=== PATIENT | female | born 1955 | race Caucasian/White ===

== ENCOUNTER 2020-05-19 15:34 | Outpatient (CLI) | payer MEDICARE, MEDICAID, SELFPAY ==
--- NOTE | 2020-05-19 15:40 | XR_ITS ---
WS: [id number] Bone mineral density performed on a [employer], 05/19/2020 Clinical data: POSTMENOPAUSAL STATUS Findings: The bone mineral density of the distal left radius was 0.25 g/sq cm for a young adult T score of -4.0 Measurement of the left hip reveals a bone mineral density of 0.595 g/cm2 with a young adult T score of -3.3. Measurement of the right hip reveals the bone mineral density of 0.637 g/cm2 for young adult T score of -2.9. 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
== END 2020-05-19 15:35 | disposition home or self-care (01) ==
PROVIDERS: Family Provider Electrodiagnostic Medicine; Visit Provider Electrodiagnostic Medicine
DX: Z78.0 Asymptomatic menopausal state (principal); M81.0 Age-related osteoporosis without current pathological fracture
CPT/HCPCS: 77080

== ENCOUNTER 2021-08-17 12:57 | Outpatient (CLI) | payer MEDICARE, MEDICAID, SELFPAY ==
--- NOTE | 2021-08-17 13:07 | MM_ITS ---
WS: [id number] BILATERAL DIGITAL SCREENING MAMMOGRAPHY WITH CAD CLINICAL INFORMATION: SCREENING HISTORY: Screening mammogram. No current complaints. COMPARISON: TECHNIQUE: Bilateral CC and MLO views. FINDINGS: Scattered fibroglandular densities bilaterally. 6 mm ovoid asymmetry inferior quadrant right breast b est seen on the MLO view more prominent compared to previous. Recommend spot compression views and ul trasound for further evaluation. Left breast is unchanged. Punctate and lucent centered calcification s. MM/[place] [id number] IMPRESSION: BI-RADS: 0-Incomplete: Need additional imaging evaluation FOLLOW UP: Need Additional Imaging Recommend RIGHT breast diagnostic mammography and ultrasound in further evaluat ion.
== END 2021-08-17 12:58 | disposition home or self-care (01) ==
LOC: RADSHAW 13:04
PROVIDERS: PCP Electrodiagnostic Medicine; Visit Provider Electrodiagnostic Medicine
DX: Z12.31 Encounter for screening mammogram for malignant neoplasm of breast (principal)
CPT/HCPCS: 77067

== ENCOUNTER 2021-11-22 14:03 | Outpatient (CLI) | payer MEDICARE, MEDICAID, SELFPAY ==
--- NOTE | 2021-11-22 14:16 | US_ITS ---
WS: [id number] RIGHT DIGITAL MAMMOGRAPHY WITH CAD CLINICAL INFORMATION: RIGHT BREAST MASS COMPARISON: August 17, 2021 TECHNIQUE: 2 views of the right breast were obtained. FINDINGS: Scattered fibroglandular densities of the right breast. 6 mm ovoid asymmetry inferior quadrant right breast appears persistent on the spot compression views. Ultrasound is pending. ULTRASOUND BREAST RIGHT TECHNIQUE: Ultrasound right breast focused area of concern. CLINICAL INFORMATION: RIGHT BREAST MASS COMPARISON: None. FINDINGS: Ultrasound right breast 800 o'clock position 3 cm from the nipple. There is a slightly complex hypoec hoic well-circumscribed ovoid lesion with internal echogenicity measuring 6.7 x 3.2 x 7.6 mm. This is indeterminant and recommend further evaluation with ultrasound-guided biopsy. Additional smaller shadowing hypoechoic lesion at the 3:00 position 2 cm in the nipple measuring 1.8 x 2.2 x 2.2 mm. This lesion is very small but taller than wide and appears solid. Recommend ultrasoun d-guided biopsy of this area as well. US/US breast RT limited* [id number] IMPRESSION: BI-RADS: 4-Suspicious Finding-Biopsy Should Be Considered FOLLOW UP: US Guided Biopsy Recommended RECOMMEND ULTRASOUND-GUIDED BIOPSY OF THE 2 ABOVE RIGHT BREAST LESIONS.
== END 2021-11-22 14:04 | disposition home or self-care (01) ==
LOC: RADSHAW 14:09
PROVIDERS: PCP Electrodiagnostic Medicine; Visit Provider Electrodiagnostic Medicine
DX: R92.8 Other abnormal and inconclusive findings on diagnostic imaging of breast (principal); N63.13 Unspecified lump in the right breast, lower outer quadrant; N63.15 Unspecified lump in the right breast, overlapping quadrants
CPT/HCPCS: 76642; 77065

== ENCOUNTER → 2022-06-11 08:57 | Day surgery (SDC) | payer MEDICARE, MEDICAID, SELFPAY ==
[2022-06-11 08:19] VITALS: BMI 21.2
[2022-06-11] MEDS: sodium chloride 0.9% 1,000 ML 999 ML IV (09:16)
[2022-06-11 09:19] VITALS: BP 170/96; PULSE 90; RESP 18; TEMP 36.8; O2SAT 93
== END ==
PROVIDERS: PCP Electrodiagnostic Medicine; Visit Provider Family Medicine
DX: C34.92 Malignant neoplasm of unspecified part of left bronchus or lung (principal)
CPT/HCPCS: 96360; J7030

== ENCOUNTER → 2022-06-14 08:51 | Day surgery (SDC) | payer MEDICARE, MEDICAID, SELFPAY ==
[2022-06-14] MEDS: sodium chloride 0.9% 1,000 ML 999 ML IV (09:01)
[2022-06-14 09:07] VITALS: BP 144/77; PULSE 80; RESP 18; TEMP 36.7; O2SAT 98
== END ==
PROVIDERS: PCP Electrodiagnostic Medicine; Visit Provider Family Medicine
DX: C34.92 Malignant neoplasm of unspecified part of left bronchus or lung (principal)
CPT/HCPCS: 96360; J7030

== ENCOUNTER → 2022-06-18 09:52 | Day surgery (SDC) | payer MEDICARE, MEDICAID, SELFPAY ==
[2022-06-18] MEDS: sodium chloride 0.9% 1,000 ML 999 ML IV (10:05)
[2022-06-18 10:08] VITALS: BP 167/82; PULSE 86; RESP 18; TEMP 36.8; O2SAT 98
== END ==
PROVIDERS: PCP Electrodiagnostic Medicine; Visit Provider Electrodiagnostic Medicine
DX: C34.92 Malignant neoplasm of unspecified part of left bronchus or lung (principal)
CPT/HCPCS: 96360; J7030

== ENCOUNTER → 2022-06-21 09:50 | Day surgery (SDC) | payer MEDICARE, MEDICAID, SELFPAY ==
[2022-06-21] MEDS: sodium chloride 0.9% 1,000 ML 999 ML IV (10:01)
[2022-06-21 10:03] VITALS: BP 165/86; PULSE 78; RESP 18; TEMP 36.5; O2SAT 97
== END ==
PROVIDERS: PCP Electrodiagnostic Medicine; Visit Provider Electrodiagnostic Medicine
DX: C34.92 Malignant neoplasm of unspecified part of left bronchus or lung (principal)
CPT/HCPCS: 96360; J7030

== ENCOUNTER → 2022-07-04 08:48 | Day surgery (SDC) | payer MEDICARE, MEDICAID, SELFPAY ==
[2022-07-04] MEDS: sodium chloride 0.9% 1,000 ML 999 ML IV (09:04)
[2022-07-04 09:11] VITALS: BP 134/95; PULSE 93; RESP 18; TEMP 36.3; O2SAT 97
== END ==
PROVIDERS: PCP Electrodiagnostic Medicine; Visit Provider Electrodiagnostic Medicine
DX: E86.0 Dehydration (principal); C34.90 Malignant neoplasm of unspecified part of unspecified bronchus or lung
CPT/HCPCS: 96360; J7030

== ENCOUNTER 2022-07-26 10:14 | Outpatient (RCR) | payer MEDICARE, MEDICAID, SELFPAY ==
[2022-07-10] MEDS: sodium chloride 0.9% 1,000 ML 999 ML IV (10:37)
[2022-07-10 10:41] VITALS: BP 156/79; PULSE 79; RESP 18; TEMP 36.9; O2SAT 98
[2022-07-12] MEDS: sodium chloride 0.9% 1,000 ML 999 ML IV (11:00)
[2022-07-12 11:01] VITALS: BP 164/87; PULSE 77; RESP 18; TEMP 36.7; O2SAT 94
[2022-07-16] MEDS: sodium chloride 0.9% 1,000 ML 999 ML IV (10:18)
[2022-07-16 10:25] VITALS: BP 143/84; PULSE 96; RESP 18; TEMP 37; O2SAT 99
[2022-07-19 09:55] VITALS: BP 169/87; PULSE 84; RESP 18; TEMP 36.9; O2SAT 98
[2022-07-19] MEDS: sodium chloride 0.9% 1,000 ML 999 ML IV (09:58)
[2022-07-23] MEDS: sodium chloride 0.9% 1,000 ML 999 ML IV (09:25)
[2022-07-23 09:37] VITALS: BP 144/78; PULSE 82; RESP 18; TEMP 37.3; O2SAT 93
[2022-07-26 10:14] VITALS: BP 154/88; PULSE 86; RESP 18; TEMP 37; O2SAT 99
[2022-07-26] MEDS: sodium chloride 0.9% 1,000 ML 999 ML IV (10:14)
== END 2022-08-03 23:59 | disposition home or self-care (01) ==
LOC: GILAB 10:14
PROVIDERS: PCP Electrodiagnostic Medicine; Visit Provider Electrodiagnostic Medicine
DX: E86.0 Dehydration (principal); C34.90 Malignant neoplasm of unspecified part of unspecified bronchus or lung
CPT/HCPCS: 96360; J7030

== ENCOUNTER → 2022-09-06 09:43 | Day surgery (SDC) | payer MEDICARE, SELFPAY ==
[2022-09-06 10:02] VITALS: BP 152/83; PULSE 82; RESP 18; TEMP 36.7; O2SAT 98
== END ==
PROVIDERS: PCP Electrodiagnostic Medicine; Visit Provider Internal Medicine Hematology & Oncology
DX: Z45.2 Encounter for adjustment and management of vascular access device (principal)
CPT/HCPCS: 96523; J1642

== ENCOUNTER → 2022-10-18 09:52 | Day surgery (SDC) | payer MEDICARE, SELFPAY ==
[2022-10-18 10:19] VITALS: BP 156/98; PULSE 80; RESP 18; TEMP 36.1; O2SAT 96
== END ==
LOC: GILAB 09:56
PROVIDERS: PCP Electrodiagnostic Medicine; Visit Provider Internal Medicine Hematology & Oncology
DX: Z45.2 Encounter for adjustment and management of vascular access device (principal)
CPT/HCPCS: 96523

== ENCOUNTER → 2023-01-02 10:42 | Day surgery (SDC) | payer MEDICARE, SELFPAY ==
[2023-01-02 10:50] VITALS: BP 143/81; PULSE 85; RESP 18; TEMP 36.4; O2SAT 100
== END ==
LOC: GILAB 10:44
PROVIDERS: PCP Electrodiagnostic Medicine; Visit Provider Internal Medicine Hematology & Oncology
DX: Z45.2 Encounter for adjustment and management of vascular access device (principal)
CPT/HCPCS: 96523; J1642

== ENCOUNTER → 2023-03-19 11:55 | Day surgery (SDC) | payer MEDICARE, SELFPAY ==
[2023-03-19 11:55] VITALS: BP 160/76; PULSE 80; RESP 18; TEMP 36.4; O2SAT 98
--- NOTE | 2023-03-19 12:00 | PC.NURSE ---
Pt to GI infusions for port flush. Port to right chest flushed per protocol without difficulty. Good blood return noted. Pt tolerated well.
== END ==
PROVIDERS: PCP Electrodiagnostic Medicine; Visit Provider Internal Medicine Hematology & Oncology
DX: Z45.2 Encounter for adjustment and management of vascular access device (principal)
CPT/HCPCS: 96523

== ENCOUNTER 2023-03-25 12:08 | Outpatient (CLI) | payer MEDICARE, MEDICAID, SELFPAY ==
[2023-03-25 13:03] VITALS: BMI 21.1
--- NOTE | 2023-03-25 13:08 | ECG_ITS ---
[facility] Test Date: 2023-03-25 Pat Name: Mayra Ndiaye Department: Room: Gender: Female Rn Lactation: : 1955 Requested By: Christ Schaefer Order Number: [id number] Jung MD: Shaka Julian M.D. Interpretive Statements NAME OF STUDY: TREADMILL STRESS TEST INDICATION: Chest Pain PROCEDURE: At the baseline, the patient's blood pressure was 139/75 with a heart rate of 76. The baseline electrocardiogram showed normal sinus rhythm with normal ST-Ts.. The patient exercised for 5 minutes and 49 seconds on a standard [place] protocol. Patient attained a maximum heart rate of 136 beats per minute(88% of the maximum predicted heart rate) with a blood pressure at the peak exercise of 167/86 mm Hg. The EKG at the peak exercise revealed no significant changes. Patient did not have any chest pain or any significant cardiac arrhythmias with the exercise During the recovery phase, there were no new changes. Blood pressure at the end of the recovery phase was 127/74 mm Hg with a heart rate of 91 per minute. CONCLUSION: 1. Normal EKG response to treadmill exercise 2. No exercise-induced chest pain or cardiac arrhythmia 3. Fair exercise tolerance, attained a maximum of 7.0 METs Electronically Signed On 03-28-2023 7:38:55 CDT by Shaka Julian M.D. [email or web address]
[2023-03-25 13:34] VITALS: BP 127/74; PULSE 90
== END 2023-03-25 12:09 | disposition home or self-care (01) ==
LOC: CDL 12:12
PROVIDERS: PCP Electrodiagnostic Medicine; Visit Provider Electrodiagnostic Medicine
DX: R07.89 Other chest pain (principal)
CPT/HCPCS: 93017

== ENCOUNTER 2023-04-23 14:48 | Emergency (ER) | payer MEDICARE, MEDICAID, SELFPAY ==
[2023-04-23 15:23] VITALS: BP 119/77; PULSE 92; RESP 18; TEMP 36.7; O2SAT 100
--- NOTE | 2023-04-23 15:58 | XRR_ITS ---
PROCEDURE INFORMATION: Exam: XR Chest Exam date and time: 04/23/2023 4:08 PM Age: 68 years old Clinical indication: Other: Fatigue; Prior surgery; Surgery date: 6+ months; Surgery type: Port; Patient HX: HX of lung cancer TECHNIQUE: Imaging protocol: Radiologic exam of the chest. Views: 1 view. COMPARISON: CR XR chest 2V* [id number] 03/09/2019 4:48 PM FINDINGS: Tubes, catheters and devices: Interval placement of a right subclavian Port-A-Cath with the tip in the superior vena cava. Lungs: Interval development of linear soft tissue density in the left suprahilar region with superior retraction of the left hilum, this could be due to prior postsurgical or post radiation change. No focal consolidation. No pulmonary edema. Pleural spaces: No pleural effusion. No pneumothorax. Heart/Mediastinum: The cardiac silhouette and mediastinal contours are unremarkable. Vasculature: Stable vascular calcifications in the aorta. Bones/joints: Unremarkable for age. Organs: Stable findings consistent with a previous cholecystectomy with surgical clips in the right upper quadrant. XR/XR chest 1V portable [id number] IMPRESSION: 1. Interval development of linear soft tissue density in the left suprahilar region with superior retraction of the left hilum, this could be due to prior postsurgical or post radiation change, possible new suprahilar lymph node cannot be ruled out. Correlation with interval studies after treatment if available is recommended. If additional studies are not available, CT scan of the chest would be recommended. 2. Interval placement of a right subclavian Port-A-Cath with the tip in the superior vena cava. Incidental/nonacute findings are listed in the report.
--- NOTE | 2023-04-23 16:02 | ED_ITS ---
Documented by User: FELIX Sotelo 04/24/23 07:15 HPI - Nausea/Vomiting/Diarrhea General: Chief complaint: Nausea/Vomiting/Diarrhea Stated complaint: not sleeping, N/V Time Seen by Provider: 04/23/23 15:41 History of Present Illness: Patient is a 68-year-old female who comes to the ED with nausea, vomiting, abdominal pain and fatigue. Patient has a history of lung cancer that was diagnosed back in June 2022 and she completed treatment. Patient's daughter is present helping provide history as well. Approximately a month ago patient started having fatigue and was sleeping a lot. Approximately 2 weeks ago she started having episodes of abdominal pain that is located in her upper abdomen bilaterally. Here in the ED she is not having any current abdominal pain. She is also been having nausea and vomiting over the last 2 weeks and has not been able to keep any food or fluids down. Patient endorses having some constipation and says she only has bowel movements every couple days. She says she has been very fatigued and can hardly and has a hard time getting up and doing daily activities. Daughter endorses patient being confused. Denies any fevers, chest pain, shortness of breath, dysuria or hematuria. Associated nausea: Yes Associated symtoms: Reports fatigue and nausea; Denies change in vision, chest pain, dysuria, headache(s) or palpitations Review of Systems Const: Reports: fatigue; Denies: fever(s) or chills Eyes: Denies: change in vision or eye discomfort ENMT: Denies: throat pain, odynophagia, nasal discharge or nasal congestion Card: Denies: chest pain, palpitations, edema, swelling of feet/ankles, dyspnea on exertion or orthopnea Resp: Denies: dyspnea, productive cough or non-productive cough GI: Reports: nausea and vomiting; Denies: abdominal pain, diarrhea, constipation or hematochezia : Denies: flank pain, dysuria or hematuria Musc: Denies: neck pain, back pain or extremity swelling Skin/Breast: Denies: rash or new lesions Neuro: Denies: headache(s), numbness in extremities or weakness in extremities [facility] ED PFSH: Medical History (Updated 04/23/23 @ 18:15 by Yoselyn Jones MD) Lung cancer Physical Exam Const: COMMON NORMALS: patient oriented x3 and alert GENERAL APPEARANCE: lethargic and ill appearing ORIENTATION/CONSCIOUSNESS: Yes lethargic OTHER: Patient is actively vomiting during history and exam. She appears very tired and sleepy HENMT: COMMON NORMALS: normocephalic HEAD & SCALP: normocephalic MOUTH: Normal oral and palatal mucosa present THROAT: posterior oropharynx normal and uvula midline Neck/C-Spine: COMMON NORMALS: supple GENERAL: Yes normal visual inspection Resp: COMMON NORMALS: normal respiratory effort, No retractions, No use of accessory muscles and clear to auscultation bilaterally AUSCULTATION: clear to auscultation bilaterally Cardio: COMMON NORMALS: regular rate, regular rhythm, S1 normal heart sound present, S2 normal heart sound present, No gallops present (Cardio), No clicks present (Cardio), No murmurs present (Cardio) and Peripheral pulses 2+ throughout RATE: regular rate RHYTHM: regular rhythm HEART SOUNDS: S1 normal heart sound present and S2 normal heart sound present PERIPHERAL P ULSES: Peripheral pulses 2+ throughout GI: COMMON NORMALS: Normal to inspection, nondistended, normoactive bowel sounds present, Soft to palpation, non-tender and no masses PALPATION: Yes Soft to palpation : COMMON NORMALS: Yes no CVA tenderness BLADDER/KIDNEY EXAM: Yes no CVA tenderness Back/Pelvis: COMMON NORMALS: no CVA tenderness Extremity: COMMON NORMALS: normal to inspection Neuro: COMMON NORMALS: patient oriented x3 SENSORIUM/ORIENTATION: Yes alert and Yes lethargic GAIT: Yes Normal gait present Skin: GENERAL SKIN EXAM: dry skin Course Vital Signs: Vital signs: Vital Signs Temperature 98.1 F 04/23/23 15:23 Pulse Rate 91 04/23/23 18:46 Respiratory Rate 18 04/23/23 15:23 Blood Pressure 156/87 04/23/23 18:46 Pulse Oximetry 96 04/23/23 18:46 Oxygen Delivery Me thod Room Air 04/23/23 15:23 MDM - Nausea/Vomiting/Diarrhea Lab Data 04/23/23 16:04 04/23/23 16:04 Radiology Impressions Chest X-Ray 04/23/23 15:58 IMPRESSION: 1. Interval development of linear soft tissue density in the left suprahilar region with superior retraction of the left hilum, this could be due to prior postsurgical or post radiation change, possible new suprahilar lymph node cannot be ruled out. Correlation with interval studies after treatment if available is recommended. If additional studies are not available, CT scan of the chest would be recommended. 2. Interval placement of a right subclavian Port-A-Cath with the tip in the superior vena cava. Incidental/nonacute findings are listed in the report. Laboratory Results WBC 6.7 10^3/uL (4.0-10.0) 04/23/23 16:04 RBC 5.45 10^6/uL (4.1-5.3) H 04/23/23 16:04 Hgb 16.1 g/dL (11.5-15.3) H 04/23/23 16:04 Hct 49.0 % (37.0-47.0) H 04/23/23 16:04 MCV 89.9 fl (81-99) 04/23/23 16:04 MCH 29.5 pg (28.0-34.0) 04/23/23 16:04 MCHC 32.9 g/dL (30.0-36.0) 04/23/23 16:04 RDW 12.5 % (12.1-15.1) 04/23/23 16:04 Plt Count 269 10^3/cmm (130-400) 04/23/23 16:04 MPV 10.0 fL (7.4-10.4) 04/23/23 16:04 Neut % (Auto) 62.2 % 04/23/23 16:04 Lymph % (Auto) 21.7 % 04/23/23 16:04 [place] % (Auto) 12.5 % 04/23/23 16:04 Eos % (Auto) 1.7 % 04/23/23 16:04 Baso % (Auto) 1.1 % 04/23/23 16:04 Neut # (Auto) 4.15 10^3/uL (1.8-7.7) 04/23/23 16:04 Lymph # (Auto) 1.4 10^3/uL (0.8-4.8) 04/23/23 16:04 [place] # (Auto) 0.8 10^3/uL (0.2-0.9) 04/23/23 16:04 Eos # (Auto) 0.1 10^3/uL (0.0-0.8) 04/23/23 16:04 Baso # (Auto) 0.1 10^3/uL (0.0-0.1) 04/23/23 16:04 Nucleated RBC % (auto) 0 % 04/23/23 16:04 Nucleated RBCs # 0.0 /100WBC 04/23/23 16:04 Sodium 140 mmol/L (136-145) 04/23/23 16:04 Potassium 4.0 mmol/L (3.5-5.1) 04/23/23 16:04 Chloride 100 mmol/L (98-107) 04/23/23 16:04 Carbon Dioxide 21 mmol/L (22-29) L 04/23/23 16:04 Anion Gap 23.0 (5-19) H 04/23/23 16:04 BUN 23 mg/dL (8-23) 04/23/23 16:04 Creatinine 1.7 mg/dL (0.5-0.9) H 04/23/23 16:04 GFR Calculation 30.1 mL/min (90-130) L 04/23/23 16:04 Glucose 72 mg/dL (65-115) 04/23/23 16:04 Calculated Osmolality 292 mOsm/kg (285-295) 04/23/23 16:04 Lactic Acid 1.8 mmol/L (0.5-2.2) 04/23/23 16:04 Calcium 9.4 mg/dL (8.5-10.5) 04/23/23 16:04 Total Bilirubin 0.6 mg/dL (0.15-1.2) 04/23/23 16:04 AST 24 U/L (0-32) 04/23/23 16:04 ALT 11 U/L (0-33) 04/23/23 16:04 Alkaline Phosphatase 83 U/L (35-105) 04/23/23 16:04 Total Protein 8.9 g/dL (6.6-8.7) H 04/23/23 16:04 Albumin 4.6 g/dL (3.5-5.2) 04/23/23 16:04 Globulin 4.3 g/dL (1.3-4.6) 04/23/23 16:04 Lipase 35 U/L (13-60) 04/23/23 16:04 Urine Color Yellow (Yellow) 04/23/23 15:23 Urine Appearance Clear (CLEAR) 04/23/23 15:23 Urine pH 5 (5-7) 04/23/23 15:23 Ur Specific [place] 1.020 (1.005-1.030) 04/23/23 15:23 Urine Protein Neg (Negative) 04/23/23 15:23 Urine Glucose (UA) Norm (Normal) 04/23/23 15:23 Urine Ketones 2+ (Negative) H 04/23/23 15:23 Urine Blood Neg (Negative) 04/23/23 15:23 Urine Nitrate Negative (Negative) 04/23/23 15:23 Urine Bilirubin Neg (Negative) 04/23/23 15:23 Urine Urobilinogen Norm mg/dL (Negative) 04/23/23 15:23 Ur Leukocyte Esterase Negative (Negative) 04/23/23 15:23 Discharge Plan Discharge Patient Disposition: Home Clinical Impression: Vomiting Condition: Stable Prescriptions: New ondansetron 4 mg tablet,disintegrating 4 mg PO Q6H PRN (Reason: nausea and vomiting) Qty: 14 0RF No Action lovastatin 40 mg tablet 40 mg PO DAILY trazodone 150 mg tablet 150 mg PO DAILY omeprazole 20 mg capsule,delayed release(DR/EC) 20 mg PO DAILY albuterol sulfate 90 mcg/actuation HFA aerosol inhaler 1 inh INHALATION .Q6HR PRN (Reason: Wheezing) Discharge Orders: Discharge ED (Routine); Ordered 04/23/23 Ordered By: Yoselyn Jones Referrals: Christ Trent DO [Primary Care Provider] - 1-3 days Discharge Diet: Advance as tolerated Discharge Activity: Resume usual activity Patient Instructions: Acute Nausea and Vomiting (ED) Activity Restrictions/Additional Instructions: Follow up with pcp or oncologisty and will need further imaging of chest outpatient Sign Out Sign Out Data: Patient Sign Out occurred on 04/23/23 at 16:41. Patient's care was discussed, and care was transferred from to Ricardo Parnell DO. Coding Level of Care Code ED Vocational Nurse for Chg Fwd Documented by User: Yoselyn Jones MD 04/23/23 18:47 HPI - Nausea/Vomiting/Diarrhea General: Chief complaint: Nausea/Vomiting/Diarrhea Stated complaint: not sleeping, N/V Time Seen by Provider: 04/23/23 15:41 PFSH ED PFSH: Medical History (Updated 04/23/23 @ 18:15 by Yoselyn Jones MD) Lung cancer Course Vital Signs: Vital signs: Vital Signs Temperature 98.1 F 04/23/23 15:23 Pulse Rate 91 04/23/23 18:46 Respiratory Rate 18 04/23/23 15:23 Blood Pressure 156/87 04/23/23 18:46 Pulse Oximetry 96 04/23/23 18:46 Oxygen Delivery Me thod Room Air 04/23/23 15:23 MDM - Nausea/Vomiting/Diarrhea Medical Decision Making Patient presents with nausea vomiting some improved here she is able to tolerate p.o. fluids blood work here is normal I did an inform her of the finding on the chest x-ray she is to follow-up with her oncologist or her PCP needs outpatient CT scan and her and her daughter understand this we will prescribe her Zofran for home for her vomiting she is to return if worsening Medical Records I reviewed the patient's medical records. Lab Data I reviewed the patient's lab results. 04/23/23 16:04 04/23/23 16:04 Radiology Impressions Chest X-Ray 04/23/23 15:58 IMPRESSION: 1. Interval development of linear soft tissue density in the left suprahilar region with superior retraction of the left hilum, this could be due to prior postsurgical or post radiation change, possible new suprahilar lymph node cannot be ruled out. Correlation with interval studies after treatment if available is recommended. If additional studies are not available, CT scan of the chest would be recommended. 2. Interval placement of a right subclavian Port-A-Cath with the tip in the superior vena cava. Incidental/nonacute findings are listed in the report. Laboratory Results WBC 6.7 10^3/uL (4.0-10.0) 04/23/23 16:04 RBC 5.45 10^6/uL (4.1-5.3) H 04/23/23 16:04 Hgb 16.1 g/dL (11.5-15.3) H 04/23/23 16:04 Hct 49.0 % (37.0-47.0) H 04/23/23 16:04 MCV 89.9 fl (81-99) 04/23/23 16:04 MCH 29.5 pg (28.0-34.0) 04/23/23 16:04 MCHC 32.9 g/dL (30.0-36.0) 04/23/23 16:04 RDW 12.5 % (12.1-15.1) 04/23/23 16:04 Plt Count 269 10^3/cmm (130-400) 04/23/23 16:04 MPV 10.0 fL (7.4-10.4) 04/23/23 16:04 Neut % (Auto) 62.2 % 04/23/23 16:04 Lymph % (Auto) 21.7 % 04/23/23 16:04 [place] % (Auto) 12.5 % 04/23/23 16:04 Eos % (Auto) 1.7 % 04/23/23 16:04 Baso % (Auto) 1.1 % 04/23/23 16:04 Neut # (Auto) 4.15 10^3/uL (1.8-7.7) 04/23/23 16:04 Lymph # (Auto) 1.4 10^3/uL (0.8-4.8) 04/23/23 16:04 [place] # (Auto) 0.8 10^3/uL (0.2-0.9) 04/23/23 16:04 Eos # (Auto) 0.1 10^3/uL (0.0-0.8) 04/23/23 16:04 Baso # (Auto) 0.1 10^3/uL (0.0-0.1) 04/23/23 16:04 Nucleated RBC % (auto) 0 % 04/23/23 16:04 Nucleated RBCs # 0.0 /100WBC 04/23/23 16:04 Sodium 140 mmol/L (136-145) 04/23/23 16:04 Potassium 4.0 mmol/L (3.5-5.1) 04/23/23 16:04 Chloride 100 mmol/L (98-107) 04/23/23 16:04 Carbon Dioxide 21 mmol/L (22-29) L 04/23/23 16:04 Anion Gap 23.0 (5-19) H 04/23/23 16:04 BUN 23 mg/dL (8-23) 04/23/23 16:04 Creatinine 1.7 mg/dL (0.5-0.9) H 04/23/23 16:04 GFR Calculation 30.1 mL/min (90-130) L 04/23/23 16:04 Glucose 72 mg/dL (65-115) 04/23/23 16:04 Calculated Osmolality 292 mOsm/kg (285-295) 04/23/23 16:04 Lactic Acid 1.8 mmol/L (0.5-2.2) 04/23/23 16:04 Calcium 9.4 mg/dL (8.5-10.5) 04/23/23 16:04 Total Bilirubin 0.6 mg/dL (0.15-1.2) 04/23/23 16:04 AST 24 U/L (0-32) 04/23/23 16:04 ALT 11 U/L (0-33) 04/23/23 16:04 Alkaline Phosphatase 83 U/L (35-105) 04/23/23 16:04 Total Protein 8.9 g/dL (6.6-8.7) H 04/23/23 16:04 Albumin 4.6 g/dL (3.5-5.2) 04/23/23 16:04 Globulin 4.3 g/dL (1.3-4.6) 04/23/23 16:04 Lipase 35 U/L (13-60) 04/23/23 16:04 Urine Color Yellow (Yellow) 04/23/23 15:23 Urine Appearance Clear (CLEAR) 04/23/23 15:23 Urine pH 5 (5-7) 04/23/23: Ur Specific [place] 1.020 (1.005-1.030) 04/23/23 15: Urine Protein Neg (Negative) 04/23/23 15: Urine Glucose (UA) Norm (Normal) 04/23/23 15: Urine Ketones 2+ (Negative) H 04/23/23 15:23 Urine Blood Neg (Negative) 04/23/23 15:23 Urine Nitrate Negative (Negative) 04/23/23 15:23 Urine Bilirubin Neg (Negative) 04/23/23 15:23 Urine Urobilinogen Norm mg/dL (Negative) 04/23/23 15:23 Ur Leukocyte Esterase Negative (Negative) 04/23/23 15:23 Discharge Plan Discharge Patient Disposition: Home Clinical Impression: Vomiting Condition: Stable Prescriptions: New ondansetron 4 mg tablet,disintegrating 4 mg PO Q6H PRN (Reason: nausea and vomiting) Qty: 14 0RF No Action lovastatin 40 mg tablet 40 mg PO DAILY trazodone 150 mg tablet 150 mg PO DAILY omeprazole 20 mg capsule,delayed release(DR/EC) 20 mg PO DAILY albuterol sulfate 90 mcg/actuation HFA aerosol inhaler 1 inh INHALATION .Q6HR PRN (Reason: Wheezing) Discharge Orders: Discharge ED (Routine); Ordered 04/23/23 Ordered By: Yoselyn Jones Referrals: Christ Trent DO [Primary Care Provider] - 1-3 days Discharge Diet: Advance as tolerated Discharge Activity: Resume usual activity Patient Instructions: Acute Nausea and Vomiting (ED) Activity Restrictions/Additional Instructions: Follow up with pcp or oncologisty and will need further imaging of chest outpatient Sign Out Sign Out Data: Patient Sign Out occurred on 04/23/23 at 16:41. Patient's care was discussed, an d care was transferred from to Ricardo Parnell DO. Coding Level of Care Code ED Vocational Nurse for Chg Fwd Documented by User: Ricardo Parnell DO 04/25/23 05:50 HPI - Nausea/Vomiting/Diarrhea General: Chief complaint: Nausea/Vomiting/Diarrhea Stated complaint: not sleeping, N/V Time Seen by Provider: 04/23/23 15:41 PFSH ED 2 PFSH: Medical History (Updated 04/23/23 @ 18:15 by Yoselyn Jones MD) Lung cancer Course Vital Signs: Vital signs: Vital Signs Temperature 98.1 F 04/23/23 15:23 Pulse Rate 91 04/23/23 18:46 Respiratory Rate 18 04/23/23 15:23 Blood Pressure 156/87 04/23/23 18:46 Pulse Oximetry 96 04/23/23 18:46 Oxygen Delivery Me thod Room Air 04/23/23 15:23 MDM - Nausea/Vomiting/Diarrhea Medical Decision Making Chart reviewed and patient discussed with midlevel. Assumed care from Kareem Prather patient has mild acute kidney injury receiving fluids if tolerates well can likely be discharged home with antiemetics. Will need further evaluation on outpatient basis by CT. Follow-up with oncology. Care signed out to Dr. Jones at change of shift. See final notes for diagnosis and disposition. Patient presents with nausea vomiting some improved here she is able to tolerate p.o. fluids blood work here is normal I did an inform her of the finding on the chest x-ray she is to follow-up with her oncologist or her PCP needs outpatient CT scan and her and her daughter understand this we will prescribe her Zofran for home for her vomiting she is to return if worsening Lab Data 04/23/23 16:04 04/23/23 16:04 Radiology Impressions Chest X-Ray 04/23/23 15:58 IMPRESSION: 1. Interval development of linear soft tissue density in the left suprahilar region with superior retraction of the left hilum, this could be due to prior postsurgical or post radiation change, possible new suprahilar lymph node cannot be ruled out. Correlation with interval studies after treatment if available is recommended. If additional studies are not available, CT scan of the chest would be recommended. 2. Interval placement of a right subclavian Port-A-Cath with the tip in the superior vena cava. Incidental/nonacute findings are listed in the report. Laboratory Results WBC 6.7 10^3/uL (4.0-10.0) 04/23/23 16:04 RBC 5.45 10^6/uL (4.1-5.3) H 04/23/23 16:04 Hgb 16.1 g/dL (11.5-15.3) H 04/23/23 16:04 Hct 49.0 % (37.0-47.0) H 04/23/23 16:04 MCV 89.9 fl (81-99) 04/23/23 16:04 MCH 29.5 pg (28.0-34.0) 04/23/23 16:04 MCHC 32.9 g/dL (30.0-36.0) 04/23/23 16:04 RDW 12.5 % (12.1-15.1) 04/23/23 16:04 Plt Count 269 10^3/cmm (130-400) 04/23/23 16:04 MPV 10.0 fL (7.4-10.4) 04/23/23 16:04 Neut % (Auto) 62.2 % 04/23/23 16:04 Lymph % (Auto) 21.7 % 04/23/23 16:04 [place] % (Auto) 12.5 % 04/23/23 16:04 Eos % (Auto) 1.7 % 04/23/23 16:04 Baso % (Auto) 1.1 % 04/23/23 16:04 Neut # (Auto) 4.15 10^3/uL (1.8-7.7) 04/23/23 16:04 Lymph # (Auto) 1.4 10^3/uL (0.8-4.8) 04/23/23 16:04 [place] # (Auto) 0.8 10^3/uL (0.2-0.9) 04/23/23 16:04 Eos # (Auto) 0.1 10^3/uL (0.0-0.8) 04/23/23 16:04 Baso # (Auto) 0.1 10^3/uL (0.0-0.1) 04/23/23 16:04 Nucleated RBC % (auto) 0 % 04/23/23 16:04 Nucleated RBCs # 0.0 /100WBC 04/23/23 16:04 Sodium 140 mmol/L (136-145) 04/23/23 16:04 Potassium 4.0 mmol/L (3.5-5.1) 04/23/23 16:04 Chloride 100 mmol/L (98-107) 04/23/23 16:04 Carbon Dioxide 21 mmol/L (22-29) L 04/23/23 16:04 Anion Gap 23.0 (5-19) H 04/23/23 16:04 BUN 23 mg/dL (8-23) 04/23/23 16:04 Creatinine 1.7 mg/dL (0.5-0.9) H 04/23/23 16:04 GFR Calculation 30.1 mL/min (90-130) L 04/23/23 16:04 Glucose 72 mg/dL (65-115) 04/23/23 16:04 Calculated Osmolality 292 mOsm/kg (285-295) 04/23/23 16:04 Lactic Acid 1.8 mmol/L (0.5-2.2) 04/23/23 16:04 Calcium 9.4 mg/dL (8.5-10.5) 04/23/23 16:04 Total Bilirubin 0.6 mg/dL (0.15-1.2) 04/23/23 16:04 AST 24 U/L (0-32) 04/23/23 16:04 ALT 11 U/L (0-33) 04/23/23 16:04 Alkaline Phosphatase 83 U/L (35-105) 04/23/23 16:04 Total Protein 8.9 g/dL (6.6-8.7) H 04/23/23 16:04 Albumin 4.6 g/dL (3.5-5.2) 04/23/23 16:04 Globulin 4.3 g/dL (1.3-4.6) 04/23/23 16:04 Lipase 35 U/L (13-60) 04/23/23 16:04 Urine Color Yellow (Yellow) 04/23/23 15:23 Urine Appearance Clear (CLEAR) 04/23/23 15:23 Urine pH 5 (5-7) 04/23/23 15:23 Ur Specific [place] 1.020 (1.005-1.030) 04/23/23 15:23 Urine Protein Neg (Negative) 04/23/23 15:23 Urine Glucose (UA) Norm (Normal) 04/23/23 15: Urine Ketones 2+ (Negative) H 04/23/23 15:23 Urine Blood Neg (Negative) 04/23/23 15:23 Urine Nitrate Negative (Negative) 04/23/23 15: Urine Bilirubin Neg (Negative) 04/23/23 15:23 Urine Urobilinogen Norm mg/dL (Negative) 04/23/23 15:23 Ur Leukocyte Esterase Negative (Negative) 04/23/23 15:23 Discharge Plan Discharge Patient Disposition: Home Clinical Impression: Vomiting Condition: Stable Prescriptions: New ondansetron 4 mg tablet,disintegrating 4 mg PO Q6H PRN (Reason: nausea and vomiting) Qty: 14 0RF No Action lovastatin 40 mg tablet 40 mg PO DAILY trazodone 150 mg tablet 150 mg PO DAILY omeprazole 20 mg capsule,delayed release(DR/EC) 20 mg PO DAILY albuterol sulfate 90 mcg/actuation HFA aerosol inhaler 1 inh INHALATION .Q6HR PRN (Reason: Wheezing) Discharge Orders: Discharge ED (Routine); Ordered 04/23/23 Ordered By: Yoselyn Jones Referrals: Christ Trent DO [Primary Care Provider] - 1-3 days Discharge Diet: Advance as tolerated Discharge Activity: Resume usual activity Patient Instructions: Acute Nausea and Vomiting (ED) Activity Restrictions/Additional Instructions: Follow up with pcp or oncologisty and will need further imaging of chest outpatient Sign Out Sign Out Data: Patient Sign Out occurred on 04/23/23 at 16:41. Patient's care was discussed, and care was transferred from to Ricardo Parnell DO. Coding Level of Care Code ED Vocational Nurse for Leticia Godoy
[2023-04-23 16:41] LABS: Lactic Sepsis W/Reflex 1.8 mmol/L (0.5-2.2)
[2023-04-23 16:42] LABS: Alanine Aminotransferase 11 U/L (0-33); Albumin Level 4.6 g/dL (3.5-5.2); Alkaline Phosphatase 83 U/L (35-105); Aspartate Amino Transferase 24 U/L (0-32); Blood Urea Nitrogen 23 mg/dL (8-23); Calcium 9.4 mg/dL (8.5-10.5); Carbon Dioxide 21 mmol/L (22-29); Chloride 100 mmol/L (98-107); Globulin 4.3 g/dL (1.3-4.6); Glomerular Filtration Rate 30.1 mL/min (90-130); Glucose 72 mg/dL (65-115); Lipase 35 U/L (13-60); Osmolality Calculated 292 mOsm/kg (285-295); Sodium 140 mmol/L (136-145); Total Bilirubin 0.6 mg/dL (0.15-1.2); Total Protein 8.9 g/dL (6.6-8.7)
[2023-04-23] MEDS: ondansetron 2 mg/ML SDV 2 mL 4 MG IVP (16:57)
[2023-04-23] MEDS: sodium chloride 0.9% 1,000 ML 999 ML IV (16:58)
[2023-04-23 17:03] LABS: Basophils # 0.1 10^3/uL (0.0-0.1); Basophils % 1.1 %; Eosinophils # 0.1 10^3/uL (0.0-0.8); Eosinophils % 1.7 %; Hemoglobin 16.1 g/dL (11.5-15.3); Lymphocytes # 1.4 10^3/uL (0.8-4.8); Lymphocytes % 21.7 %; Mean Corpuscular HGB Conc 32.9 g/dL (30.0-36.0); Mean Corpuscular Hemoglobin 29.5 pg (28.0-34.0); Mean Corpuscular Volume 89.9 fl (81-99); Monocytes # 0.8 10^3/uL (0.2-0.9); Monocytes % 12.5 %; Neutrophils # 4.15 10^3/uL (1.8-7.7); Neutrophils % 62.2 %; Nucleated Red Blood Cells % 0 %; Platelet Count 269 10^3/cmm (130-400); Red Blood Count 5.45 10^6/uL (4.1-5.3); Red Cell Distribution Width 12.5 % (12.1-15.1); White Blood Count 6.7 10^3/uL (4.0-10.0)
[2023-04-23 17:20] LABS: Add Urine Microscopic? NO; Charge for UA Resulting for Rev
[2023-04-23 17:31] LABS: Bilirubin Urine Neg (Negative); Blood Urine Neg (Negative); Glucose Urine UA Norm (Normal); Ketones Urine 2+ (Negative); Leukocyte Esterase Urine Negative (Negative); Nitrate Urine Negative (Negative); Protein Urine Neg (Negative); Urine Appearance Clear (CLEAR); Urine Color Yellow (Yellow); Urobilinogen Urine Norm (Negative); pH Urine 5 (5-7)
[2023-04-23 18:46] VITALS: BP 156/87; PULSE 91; O2SAT 96
== END 2023-04-23 18:48 | disposition home or self-care (01) ==
PROVIDERS: Physician Assistant; Emergency Provider Emergency Medicine; PCP Electrodiagnostic Medicine
DX: R11.11 Vomiting without nausea (principal); Z85.118 Personal history of other malignant neoplasm of bronchus and lung
CPT/HCPCS: 36415; 71045; 80053; 81003; 83605; 83690; 85025; 96361; 96374; 99285; J2405; J7030

== ENCOUNTER 2023-05-02 10:41 | Inpatient (IN) | payer MEDICARE, SELFPAY ==
[2023-05-02] VITALS (12 sets, daily range): BP systolic 122–185; BP diastolic 79–123; PULSE 68–122; RESP 16–30; TEMP 36.4–37.2; O2SAT 92–100; BMI 20.9
--- NOTE | 2023-05-02 10:48 | W.ED.WEAKNES ---
HPI - Weakness General: Chief complaint: Weakness Stated complaint: sick, unable to eat x1 week Time Seen by Provider: 05/02/23 10:42 Source: patient Mode of arrival: EMS History of Present Illness: 68-year-old female with a history of lung CA return to the emergency room complaining of weakness poor appetite and dizziness progressively worse over the last 2 to 3 weeks in the last 4 to 5 days she has had increasing nausea and vomiting. She was seen here lab work was generally unremarkable she was discharged home for outpatient testing. She tells me she was at [facility] and had scans done there and was discharged home. She was complaining of persistent nausea vomiting to her primary care doctor and was directed to the emergency room this morning she denies any hematemesis coffee-ground emesis no hematochezia or melena denies dysuria urgency or frequency no fever. MD Complaint: generalized weakness Onset (ago): day(s) Duration: intermittent and progressively worsening Location: generalized Severity: moderate Relieving factors: none Exacerbating factors: none Associated symptoms: Reports decreased appetite, myalgias, nausea, short of breath and other; Denies chest pain, chills, confusion, melena, diaphoresis, dysuria, easy bruising, fever(s), headache(s), rash, syncope or vomiting Review of Systems Const: Denies: fever(s), chills or diaphoresis ENMT: Denies: throat pain, ear or mastoid pain, nasal discharge or nasal congestion Card: Denies: chest pain or syncope Resp: Denies: dyspnea, productive cough or non-productive cough GI: Reports: abdominal pain and nausea; Denies: vomiting, diarrhea or melena : Denies: dysuria, urinary frequency or urinary urgency Skin/Breast: Denies: rash or pruritus Neuro: Denies: headache(s) or confusion Eric/Lymph: Denies: easy bruising PFS ED PFSH: Medical History Lung cancer Physical Exam Const: GENERAL APPEARANCE: cooperative and comfortable ORIENTATION/CONSCIOUSNESS: Yes awake HENMT: COMMON NORMALS: normocephalic, atraumatic and hearing grossly normal bilaterally HEAD & SCALP: normocephalic and atraumatic Resp: COMMON NORMALS: normal respiratory effort, No retractions, No use of accessory muscles and clear to auscultation bilaterally AUSCULTATION: clear to auscultation bilaterally Cardio: COMMON NORMALS: regular rate, regular rhythm and No murmurs present (Cardio) RATE: regular rate RHYTHM: regular rhythm GI: COMMON NORMALS: No hepatosplenomegaly present AUSCULTATION: Yes normoactive bowel sounds PALPATION: Yes Tenderness to palpation present (GI) (Epigastric), No Guarding due to palpation present (GI) and Yes No hepatosplenomegaly present Extremity: COMMON NORMALS: normal to inspection, capillary refill normal, no clubbing, cyanosis or edema, no calf tenderness and no pedal edema Skin: COMMON NORMALS: no rashes or lesions noted GENERAL SKIN EXAM: no rashes or lesions noted Course Vital Signs: Vital signs: Vital Signs Temperature 97.5 F L 05/02/23 10:45 Pulse Rate 122 H 05/02/23 13:30 Respiratory Rate 27 H 05/02/23 13:30 Blood Pressure 147/95 05/02/23 13:30 Pulse Oximetry 92 05/02/23 12:30 Oxygen Delivery Me thod Room Air 05/02/23 12:00 MDM - Weakness Medical Decision Making EKG unremarkable. Chest x-ray showed questionable area in the right hilum CT chest abdomen pelvis showed what appeared to be scarring radiology recommended a follow-up CT in 3 months she had a hepatic lesion however I do not know if that is a new lesion or not radiology question whether or not is metastasis we do not have any old records to compare to and were trying to get old records from her treatments in [facility]. Her symptoms have improved somewhat with antiemetics her anion gap is significantly elevated at 23.3 she has a slight bump in her creatinine as well although it is better today prior to contrast that was when she was last seen. Will admit continue IV fluids and antiemetics discussed with hospitalist orders written. Medical Records I reviewed the patient's medical records. Lab Data I reviewed the patient's lab results. 05/02/23 11:10 05/02/23 11:10 Radiology Impressions Chest X-Ray 05/02/23 11:05 IMPRESSION: 1. Prominent left pulmonary hilum with superior retraction of the hilum unchanged. 2. No acute cardiopulmonary process. 3. Right-sided subclavian port in satisfactory location. Chest/Abdomen/Pelvis CT 05/02/23 11:44 IMPRESSION: 1. LEFT hilar and suprahilar soft tissue thickening and stranding may all be posttreatment related changes. Recommend comparison to prior imaging studies. There are no prior recent studies available for comparison. 2. Chronic emphysema and very mild interstitial thickening in the LEFT lobe. Probably areas of pneumonitis and tree-in-bud airspace disease. 3. Recommend follow-up chest CT in 3 months. 4. Low-attenuation mass in the LEFT hepatic lobe measures 2.0 x 2.2 cm. Suspicious for metastatic lesion. 5. No ascites or adenopathy within the abdomen or pelvis. 6. Mild esophageal wall thickening and edema but no esophageal obstruction. 7. T12 30% compression fracture with retropulsion superior endplate. Laboratory Results WBC 7.6 10^3/uL (4.0-10.0) 05/02/23 11:10 RBC 4.54 10^6/uL (4.1-5.3) 05/02/23 11:10 Hgb 13.6 g/dL (11.5-15.3) 05/02/23 11:10 Hct 40.2 % (37.0-47.0) 05/02/23 11:10 MCV 88.5 fl (81-99) 05/02/23 11:10 MCH 30.0 pg (28.0-34.0) 05/02/23 11:10 MCHC 33.8 g/dL (30.0-36.0) 05/02/23 11:10 RDW 12.4 % (12.1-15.1) 05/02/23 11:10 Plt Count 270 10^3/cmm (130-400) 05/02/23 11:10 MPV 11.0 fL (7.4-10.4) H 05/02/23 11:10 Neut % (Auto) 75.4 % 05/02/23 11:10 Lymph % (Auto) 11.1 % 05/02/23 11:10 [place] % (Auto) 11.4 % 05/02/23 11:10 Eos % (Auto) 0.9 % 05/02/23 11:10 Baso % (Auto) 0.5 % 05/02/23 11:10 Neut # (Auto) 5.75 10^3/uL (1.8-7.7) 05/02/23 11:10 Lymph # (Auto) 0.9 10^3/uL (0.8-4.8) 05/02/23 11:10 [place] # (Auto) 0.9 10^3/uL (0.2-0.9) 05/02/23 11:10 Eos # (Auto) 0.1 10^3/uL (0.0-0.8) 05/02/23 11:10 Baso # (Auto) 0.0 10^3/uL (0.0-0.1) 05/02/23 11:10 Nucleated RBC % (auto) 0 % 05/02/23 11:10 Nucleated RBCs # 0.0 /100WBC 05/02/23 11:10 Sodium 146 mmol/L (136-145) H 05/02/23 11:10 Potassium 3.9 mmol/L (3.5-5.1) 05/02/23 11:10 Chloride 107 mmol/L (98-107) 05/02/23 11:10 Carbon Dioxide 19 mmol/L (22-29) L 05/02/23 11:10 Anion Gap 23.9 (5-19) H 05/02/23 11:10 BUN 12 mg/dL (8-23) 05/02/23 11:10 Creatinine 1.4 mg/dL (0.5-0.9) H 05/02/23 11:10 GFR Calculation 37.6 mL/min (90-130) L 05/02/23 11:10 Glucose 93 mg/dL (65-115) 05/02/23 11:10 Calculated Osmolality 301 mOsm/kg (285-295) H 05/02/23 11:10 Calcium 8.7 mg/dL (8.5-10.5) 05/02/23 11:10 Total Bilirubin 0.5 mg/dL (0.15-1.2) 05/02/23 11:10 AST 35 U/L (0-32) H 05/02/23 11:10 ALT 24 U/L (0-33) 05/02/23 11:10 Alkaline Phosphatase 79 U/L (35-105) 05/02/23 11:10 Total Protein 7.9 g/dL (6.6-8.7) 05/02/23 11:10 Albumin 3.9 g/dL (3.5-5.2) 05/02/23 11:10 Globulin 4.0 g/dL (1.3-4.6) 05/02/23 11:10 Lipase 39 U/L (13-60) 05/02/23 11:10 Urine Color Yellow (Yellow) 05/02/23 11:10 Urine Appearance Clear (CLEAR) 05/02/23 11:10 Urine pH 5 (5-7) 05/02/23 11:10 Ur Specific [place] 1.020 (1.005-1.030) 05/02/23 11:10 Urine Protein Neg (Negative) 05/02/23 11:10 Urine Glucose (UA) Norm (Normal) 05/02/23 11:10 Urine Ketones 1+ (Negative) H 05/02/23 11:10 Urine Blood Neg (Negative) 05/02/23 11:10 Urine Nitrate Negative (Negative) 05/02/23 11:10 Urine Bilirubin Neg (Negative) 05/02/23 11:10 Urine Urobilinogen Norm mg/dL (Negative) 05/02/23 11:10 Ur Leukocyte Esterase Negative (Negative) 05/02/23 11:10 Serum Ketones Positive (Negative) H 05/02/23 11:10 Discharge Plan Discharge Patient Disposition: Placed in Observation Admit Provider: Andre Martinez Clinical Impression: Nausea & vomiting, History of lung cancer, Hepatic lesion, Metabolic acidosis Condition: Stable Prescriptions: No Action lovastatin 40 mg tablet 40 mg PO DAILY trazodone 150 mg tablet 150 mg PO DAILY omeprazole 20 mg capsule,delayed release(DR/EC) 20 mg PO DAILY albuterol sulfate 90 mcg/actuation HFA aerosol inhaler 1 inh INHALATION .Q6HR PRN (Reason: Wheezing) ondansetron 4 mg tablet,disintegrating 4 mg PO Q6H PRN (Reason: nausea and vomiting) Qty: 14 0RF Referrals: Christ Trent DO [Primary Care Provider] - Coding Level of Care Code ED Cooling Room Attendant for Anuragg Walt
--- NOTE | 2023-05-02 11:05 | XR_ITS ---
WS: [id number] Exam: XR chest 1V portable [id number] Date/Time of Exam: 05/02/2023 11:07 AM Reason For Exam: dyspnea/cough Comparison 04/23/2023. The lungs are hyperinflated and clear. Again noted is retraction and prominence of the left pulmonary hilum. This is unchanged. A right subclavian port ends in the lower one third of the SVC in good pos ition. Heart size is normal. The mediastinum is normal in contour. No pleural effusions. Bony structu res are intact. XR/XR chest 1V portable [id number] IMPRESSION: 1. Prominent left pulmonary hilum with superior retraction of the hilum unchang ed. 2. No acute cardiopulmonary process. 3. Right-sided subclavian port in satisfactory location.
[2023-05-02 11:20] LABS: Add Urine Microscopic? NO; Basophils % 0.5 %; Charge for UA Resulting for Rev; Eosinophils # 0.1 10^3/uL (0.0-0.8); Eosinophils % 0.9 %; Hematocrit 40.2 % (37.0-47.0); Hemoglobin 13.6 g/dL (11.5-15.3); Lymphocytes # 0.9 10^3/uL (0.8-4.8); Lymphocytes % 11.1 %; Mean Corpuscular HGB Conc 33.8 g/dL (30.0-36.0); Mean Corpuscular Volume 88.5 fl (81-99); Monocytes # 0.9 10^3/uL (0.2-0.9); Monocytes % 11.4 %; Neutrophils # 5.75 10^3/uL (1.8-7.7); Neutrophils % 75.4 %; Nucleated Red Blood Cells % 0 %; Platelet Count 270 10^3/cmm (130-400); Red Blood Count 4.54 10^6/uL (4.1-5.3); Red Cell Distribution Width 12.4 % (12.1-15.1); White Blood Count 7.6 10^3/uL (4.0-10.0)
[2023-05-02] MEDS: sodium chloride 0.9% 1,000 ML 999 ML IV ×2 (11:22→12:30)
[2023-05-02] MEDS: promethazine 25 mg/mL SDV 1 mL IM (11:22)
[2023-05-02 11:23] LABS: Bilirubin Urine Neg (Negative); Blood Urine Neg (Negative); Glucose Urine UA Norm (Normal); Ketones Urine 1+ (Negative); Leukocyte Esterase Urine Negative (Negative); Nitrate Urine Negative (Negative); Protein Urine Neg (Negative); Urine Appearance Clear (CLEAR); Urine Color Yellow (Yellow); Urobilinogen Urine Norm (Negative); pH Urine 5 (5-7)
--- NOTE | 2023-05-02 11:26 | ECG_ITS ---
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 Measurements Intervals Baudette Rate: 103 P: 74 NM: 170 QRS: 74 QRSD: 94 T: 79 QT: 394 QTc: 517 Interpretive Statements SINUS TACHYCARDIA ABNORMAL RHYTHM ECG No previous ECG available for comparison Electronically Signed On 05-02-2023 12:18:04 CDT by Marcella Bean M.D. [id number]
[2023-05-02 11:37] LABS: Alanine Aminotransferase 24 U/L (0-33); Albumin Level 3.9 g/dL (3.5-5.2); Alkaline Phosphatase 79 U/L (35-105); Anion Gap 23.9 (5-19); Aspartate Amino Transferase 35 U/L (0-32); Blood Urea Nitrogen 12 mg/dL (8-23); Calcium 8.7 mg/dL (8.5-10.5); Carbon Dioxide 19 mmol/L (22-29); Chloride 107 mmol/L (98-107); Glomerular Filtration Rate 37.6 mL/min (90-130); Glucose 93 mg/dL (65-115); Ketone (Acetest) Serum Positive (Negative); Lipase 39 U/L (13-60); Osmolality Calculated 301 mOsm/kg (285-295); Potassium 3.9 mmol/L (3.5-5.1); Sodium 146 mmol/L (136-145); Total Bilirubin 0.5 mg/dL (0.15-1.2); Total Protein 7.9 g/dL (6.6-8.7)
--- NOTE | 2023-05-02 11:44 | CT_ITS ---
WS: [id number] CT CHEST, ABDOMEN AND PELVIS WITH CONTRAST HISTORY: recurrent lung CA w persistent N/V TECHNIQUE: Contiguous 5 mm axial imaging performed through the chest, abdomen and pelvis with IV cont rast, oral contrast has not been provided. Coronal and sagittal reformats chest. Coronal and sagittal reformats through the abdomen and pelvis. All CT scans at [facility] use at least one of the se dose optimization techniques: automated exposure control; mA and/or kV adjustment per patient size (includes targeted exams where dose is matched to clinical indication); or iterative reconstruction. CONTRAST: Omnipaque 350; 100 mL IV. DLP: 538.96 mGy.cm COMPARISON: No similar studies. Chest radiograph 05/02/2023. Chest CT: Diffuse mild peripheral interstitial thickening. More focal scattered opacifications LEFT u pper lobe. Some of these changes are adjacent to the mediastinum and probably secondary to radiation port. No mass like consolidation. There is mild soft tissue thickening at the RIGHT hilum and suprahi lar region which could be posttreatment related. It would be very important to compare this to prior imaging studies for change. Moderate atherosclerotic plaque thoracic aorta. Nonaneurysmal dilatation. Normal size pulmonary arter y. Right-sided Mediport. Mildly prominent lymphoid tissue at the hilar regions. No enlargement of the lymph node groups. There is mild esophageal wall edema. Moderate enlargement of the LEFT ventricle. No pericardial or pleural effusion. Small hiatal hernia. Abdomen CT: Well-circumscribed low-attenuation mass LEFT lobe of the liver measuring 2.0 x 2.2 cm. Th is is not a simple cyst. Very mild areas of decreased echogenicity along the falciform ligament. No b ile duct dilatation. Normal portal vein. Prior cholecystectomy. Normal spleen. Normal pancreas. Robyn l adrenal glands. No renal obstruction. Mild atherosclerosis aorta. Small amount of calcified plaque at the origins of the SMA and celiac axis. Stomach is nondistended. There is a small hiatal hernia. No small bowel obstruction. No evidence for appendicitis. Visualized appendix is normal. No ascites or adenopathy. Pelvic CT: Negative urinary bladder. No free fluid. Prior hysterectomy. T12, 30% compression fracture with 2 mm retropulsion of posterior superior endplate. No destructive bone lesion. No additional fractures. CT/CT chest abdpel w/*[id number] IMPRESSION: 1. LEFT hilar and suprahilar soft tissue thickening and stranding may all be p osttreatment related changes. Recommend comparison to prior imaging studies. Th ere are no prior recent studies available for comparison. 2. Chronic emphysema and very mild interstitial thickening in the LEFT lobe. P robably areas of pneumonitis and tree-in-bud airspace disease. 3. Recommend follow-up chest CT in 3 months. 4. Low-attenuation mass in the LEFT hepatic lobe measures 2.0 x 2.2 cm. Suspici ous for metastatic lesion. 5. No ascites or adenopathy within the abdomen or pelvis. 6. Mild esophageal wall thickening and edema but no esophageal obstruction. 7. T12 30% compression fracture with retropulsion superior endplate.
[2023-05-02] MEDS: iohexol 350 mg/mL 500 mL Btl (per mL) IV (12:15)
--- NOTE | 2023-05-02 12:53 | P.HP_ITS ---
Providers/Chief Complaint Admitting Physician: Primary Care Provider: Christ Trent DO Chief Complaint: sick, unable to eat x1 week Review of Systems General: Reports: Other (ROS as per HPI or as otherwise noted here) Medications/Allergies Home Medications Medication Instructions Recorded Confirmed Last Taken Type albuterol sulfate 90 mcg/actuation 1 inh inhalation .Q6HR PRN Wheezing 06/11/22 04/17/23 03/19/23 History aerosol inhaler lovastatin 40 mg tablet 40 mg PO DAILY 06/11/22 04/17/23 03/19/23 History omeprazole 20 mg capsule,delayed 20 mg PO DAILY 06/11/22 04/17/23 03/19/23 History release trazodone 150 mg tablet 150 mg PO DAILY 06/11/22 04/17/23 03/19/23 History ondansetron 4 mg disintegrating 4 mg PO Q6H PRN nausea and 04/23/23 Unknown Rx tablet vomiting #14 tabs Allergies Allergy/AdvReac Type Severity Reaction Status Date / Time No Known Allergies Allergy Verified 05/02/23 10:48 PFSH Acute PFSH: Medical History (Updated 05/02/23 @ 12:56 by Maria Teresa Slaughter MD) Lung cancer Vitals/I&O/Wt Last Vital Signs Temp 97.5 F L 05/02/23 10:45 Pulse 107 H 05/02/23 12:30 Resp 23 H 05/02/23 12:30 BP 124/90 05/02/23 12:30 Pulse Ox 92 05/02/23 12:30 O2 Del Method Room Air 05/02/23 12:00 Weight last 48 hrs Weight 55.338 kg Physical Exam Narrative: Patient is [] Data 05/02/23 11:10 05/02/23 11:10 Other Labs: Radiology Impressions Chest X-Ray 05/02/23 11:05 IMPRESSION: 1. Prominent left pulmonary hilum with superior retraction of the hilum unchanged. 2. No acute cardiopulmonary process. 3. Right-sided subclavian port in satisfactory location Chest/Abdomen/Pelvis CT 05/02/23 11:44 IMPRESSION: 1. LEFT hilar and suprahilar soft tissue thickening and stranding may all be posttreatment related changes. Recommend comparison to prior imaging studies. There are no prior recent studies available for comparison. 2. Chronic emphysema and very mild interstitial thickening in the LEFT lobe. Probably areas of pneumonitis and tree-in-bud airspace disease. 3. Recommend follow-up chest CT in 3 months. 4. Low-attenuation mass in the LEFT hepatic lobe measures 2.0 x 2.2 cm. Suspicious for metastatic lesion. 5. No ascites or adenopathy within the abdomen or pelvis. 6. Mild esophageal wall thickening and edema but no esophageal obstruction. 7. T12 30% compression fracture with retropulsion superior endplate. Laboratory Results WBC 7.6 10^3/uL (4.0-10.0) 05/02/23 11:10 RBC 4.54 10^6/uL (4.1-5.3) 05/02/23 11:10 Hgb 13.6 g/dL (11.5-15.3) 05/02/23 11:10 Hct 40.2 % (37.0-47.0) 05/02/23 11:10 MCV 88.5 fl (81-99) 05/02/23 11:10 MCH 30.0 pg (28.0-34.0) 05/02/23 11:10 MCHC 33.8 g/dL (30.0-36.0) 05/02/23 11:10 RDW 12.4 % (12.1-15.1) 05/02/23 11:10 Plt Count 270 10^3/cmm (130-400) 05/02/23 11:10 MPV 11.0 fL (7.4-10.4) H 05/02/23 11:10 Neut % (Auto) 75.4 % 05/02/23 11:10 Lymph % (Auto) 11.1 % 05/02/23 11:10 [place] % (Auto) 11.4 % 05/02/23 11:10 Eos % (Auto) 0.9 % 05/02/23 11:10 Baso % (Auto) 0.5 % 05/02/23 11:10 Neut # (Auto) 5.75 10^3/uL (1.8-7.7) 05/02/23 11:10 Lymph # (Auto) 0.9 10^3/uL (0.8-4.8) 05/02/23 11:10 [place] # (Auto) 0.9 10^3/uL (0.2-0.9) 05/02/23 11:10 Eos # (Auto) 0.1 10^3/uL (0.0-0.8) 05/02/23 11:10 Baso # (Auto) 0.0 10^3/uL (0.0-0.1) 05/02/23 11:10 Nucleated RBC % (auto) 0 % 05/02/23 11:10 Nucleated RBCs # 0.0 /100WBC 05/02/23 11:10 Sodium 146 mmol/L (136-145) H 05/02/23 11:10 Potassium 3.9 mmol/L (3.5-5.1) 05/02/23 11:10 Chloride 107 mmol/L (98-107) 05/02/23 11:10 Carbon Dioxide 19 mmol/L (22-29) L 05/02/23 11:10 Anion Gap 23.9 (5-19) H 05/02/23 11:10 BUN 12 mg/dL (8-23) 05/02/23 11:10 Creatinine 1.4 mg/dL (0.5-0.9) H 05/02/23 11:10 GFR Calculation 37.6 mL/min (90-130) L 05/02/23 11:10 Glucose 93 mg/dL (65-115) 05/02/23 11:10 Calculated Osmolality 301 mOsm/kg (285-295) H 05/02/23 11:10 Calcium 8.7 mg/dL (8.5-10.5) 05/02/23 11:10 Total Bilirubin 0.5 mg/dL (0.15-1.2) 05/02/23 11:10 AST 35 U/L (0-32) H 05/02/23 11:10 ALT 24 U/L (0-33) 05/02/23 11:10 Alkaline Phosphatase 79 U/L (35-105) 05/02/23 11:10 Total Protein 7.9 g/dL (6.6-8.7) 05/02/23 11:10 Albumin 3.9 g/dL (3.5-5.2) 05/02/23 11:10 Globulin 4.0 g/dL (1.3-4.6) 05/02/23 11:10 Lipase 39 U/L (13-60) 05/02/23 11:10 Urine Color Yellow (Yellow) 05/02/23 11:10 Urine Appearance Clear (CLEAR) 05/02/23 11:10 Urine pH 5 (5-7) 05/02/23 11:10 Ur Specific [place] 1.020 (1.005-1.030) 05/02/23 11:10 Urine Protein Neg (Negative) 05/02/23 11:10 Urine Glucose (UA) Norm (Normal) 05/02/23 11:10 Urine Ketones 1+ (Negative) H 05/02/23 11:10 Urine Blood Neg (Negative) 05/02/23 11:10 Urine Nitrate Negative (Negative) 05/02/23 11:10 Urine Bilirubin Neg (Negative) 05/02/23 11:10 Urine Urobilinogen Norm mg/dL (Negative) 05/02/23 11:10 Ur Leukocyte Esterase Negative (Negative) 05/02/23 11:10 Serum Ketones Positive (Negative) H 05/02/23 11:10 Attestations Medical Necessity Statement*: Anticipated stay greater than two midnights []. Coding Level of Care Code Acute Code for Chg Fwd Diagnoses
[2023-05-02] MEDS: sodium chloride 0.9% 1,000 ML 125 ML IV (15:39)
--- NOTE | 2023-05-02 16:04 | PM.HP ---
Providers/Chief Complaint Admitting Physician: Andre Martinez MD Primary Care Provider: Christ Trent DO Chief Complaint: sick, unable to eat x1 week History of Present Illness Mayra Ndiaye is a 68 year old female who has history of lung cancer status post radiotherapy, patient sees oncologist at [facility] PCP is Dr. 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 She has no motivation at all to eat and drink. She is losing muscle mass. She is experiencing hallucinations. At the time of evaluation she is awake and alert able to get up walk around go to the bathroom, able to answer my questions appropriately, patient is stating that she would think about appointing her daughter as medical DPOA but it has not been initiated. Daughter was upset that her mother is not allowing her to treat her, she is concerned that she is giving up and that will make her suffer her more Documentation from [facility] Review of Systems Const: Reports: change in weight; Denies: fever(s) Eyes: Denies: change in vision ENMT: Denies: throat pain Card: Denies: chest pain Resp: Denies: dyspnea GI: Denies: abdominal pain : Denies: flank pain Musc: Denies: neck pain Skin/Breast: Denies: changing lesions Neuro: Denies: headache(s) Psych: Reports: depression Endo: Denies: polyuria Medications/Allergies Home Medications Medication Instructions Recorded Confirmed Last Taken Type albuterol sulfate 90 mcg/actuation 1 inh inhalation .Q6HR PRN Wheezing 06/11/22 05/02/23 03/19/23 History aerosol inhaler lovastatin 40 mg tablet 40 mg PO DAILY 06/11/22 05/02/23 03/19/23 History omeprazole 20 mg capsule,delayed 20 mg PO DAILY 06/11/22 05/02/23 05/01/23 History release trazodone 150 mg tablet 150 mg PO DAILY 06/11/22 05/02/23 03/19/23 History ondansetron 4 mg disintegrating 4 mg PO Q6H PRN nausea and 04/23/23 05/02/23 05/01/23 Rx tablet vomiting #14 tabs ascorbic acid (vitamin C) 100 mg 100 mg PO DAILY 05/02/23 05/02/23 Unknown History tablet (Vitamin C) budesonide 160 mcg-glycopyr 9 2 inh inhalation BID 05/02/23 05/02/23 Unknown History mcg-formot 4.8 mcg/actuation HFA inhaler (Breztri Aerosphere) cholecalciferol (vitamin D3) 25 25 mcg PO DAILY 05/02/23 05/02/23 Unknown History mcg (1,000 unit) capsule (Vitamin D3) cyanocobalamin (vitamin B-12) 50 50 mcg PO DAILY 05/02/23 05/02/23 Unknown History mcg tablet (Vitamin B-12) escitalopram oxalate 10 mg tablet 10 mg PO DAILY 05/02/23 05/02/23 Unknown History Allergies Allergy/AdvReac Type Severity Reaction Status Date / Time No Known Allergies Allergy Verified 05/02/23 10:48 PFSH Acute PFSH: Medical History (Updated 05/03/23 @ 10:08 by Andre Martinez MD) Hypertension Lung cancer Port-A-Cath in place Surgical History (Updated 05/03/23 @ 10:06 by Andre Martinez MD) Previous back surgery Vitals/I&O/Wt Last Vital Signs Temp 97.5 F L 05/02/23 10:45 Pulse 68 05/02/23 14:34 Resp 27 H 05/02/23 13:30 BP 131/94 05/02/23 14:34 Pulse Ox 96 05/02/23 14:34 O2 Del Method Room Air 05/02/23 12:00 05/02/23 05/02/23 05/02/23 06:59 14:59 22:59 Intake Total 1999 Balance 1999 Weight last 48 hrs Weight 55.338 kg Physical Exam Narrative: Patient does endorse visual and auditory hallucination Nonfocal neuro exam Able to get a walk around GCS 15 Signs of dehydration Muscle mass loss Protein calorie malnourishment Abdomen soft Currently on room air Family at the bedside Pleasant and cooperative during my evaluation Pupils symmetrical S1, S2 Data 05/03/23 04:41 05/03/23 04:41 A&P Assessment and plan (1) Lung cancer: (2) Nausea & vomiting: (3) Hepatic lesion: (4) Metabolic acidosis: (5) Starvation ketoacidosis: (6) Hypernatremia: (7) Protein calorie malnutrition: Plan Small cell lung cancer status post radiotherapy Patient was given status of admission back in February I will request records from Dr. Trent and [facility] She does have T12 compression fracture Hepatic lesion As per the family they were told about hepatic lesion in the past which was considered benign at that point She was not given a status of metastatic cancer Lack of motivation to eat we will add mirtazapine continue escitalopram We will consult dietitian for protein calorie malnourishment We will keep her on clear liquid diet No obvious signs obstruction evident on CT scan of abdomen pelvis. I will request CT head to rule out metastatic lesions Patient remains full code Family at the bedside Clear liquid diet Continue IV fluids She will need to be monitored for refeeding syndrome her last proper meal was roughly 3 to 4 weeks ago as per the family Most of the information has been taken from her daughter who is at the bedside Check magnesium, phosphorus, monitor for any signs of arrhythmia, Attestations Medical Necessity Statement*: More than 2 midnights anticipated Diagnoses Lung cancer C34.90 Nausea & vomiting R11.2 Hepatic lesion K76.9 Metabolic acidosis E87.20 Starvation ketoacidosis T73.0XXA; E87.29 Hypernatremia E87.0 Protein calorie malnutrition E46
--- NOTE | 2023-05-02 16:05 | CTR_ITS ---
PROCEDURE INFORMATION: Exam: CT Head Without Contrast Exam date and time: 05/02/2023 4:39 PM Age: 68 years old Clinical indication: Other: Lung cancer TECHNIQUE: Imaging protocol: Computed tomography of the head without contrast. Radiation optimization: All CT scans at this facility use at least one of these dose optimization techniques: automated exposure control; mA and/or kV adjustment per patient size (includes targeted exams where dose is matched to clinical indication); or iterative reconstruction. REPORTING DATA: Count of CT and Cardiac NM exams in prior 12 months: This patient has received 0 known CTs and 0 known cardiac nuclear medicine studies in the 12 months prior to the current study. COMPARISON: No relevant prior studies available. RADIATION DOSE METRICS: Total DLP (mGy-cm): 916.08 FINDINGS: Brain: Heterogenous hypodensity in the left temporal lobe measuring 2.5 cm. 2.4 x 1.8 cm hyperdensity in the right frontal lobe. 1 cm hyperdensity in the left frontal lobe. 1.5 cm hyperdensity in the left lateral ventricle. 1.6 cm hyperdensity in the suprasellar region. Cerebral ventricles: See Brain finding. Paranasal sinuses: Visualized sinuses are unremarkable. No fluid levels. Mastoid air cells: Visualized mastoid air cells are well aerated. Bones/joints: Unremarkable. No acute fracture. Soft tissues: Unremarkable. CT/CT head wo con* [id number] IMPRESSION: Multiple hyperdense lesions in bilateral hemispheres with the largest measuring 2.4 x 1.8 cm in the right frontal lobe. 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
[2023-05-02 16:56] LABS: Thyroid Stimulating Hormone 0.65 uIU/mL (0.27-4.20)
[2023-05-02] MEDS: sodium chloride 0.9% 1,000 ML 75 ML IV (17:08)
[2023-05-02] MEDS: pantoprazole 40 mg SDV IVP (17:13)
[2023-05-02] MEDS: mirtazapine 15 mg Tablet 7.5 MG PO (21:56)
[2023-05-02] MEDS: dexamethasone 4 mg Tablet PO (21:56)
[2023-05-03] VITALS (8 sets, daily range): BP systolic 94–123; BP diastolic 58–88; PULSE 56–112; RESP 16–18; TEMP 36–37; O2SAT 94–97
[2023-05-03 05:28] LABS: Basophils % 0.3 %; Hematocrit 38.7 % (37.0-47.0); Hemoglobin 12.3 g/dL (11.5-15.3); Lymphocytes # 0.3 10^3/uL (0.8-4.8); Lymphocytes % 4.4 %; Mean Corpuscular HGB Conc 31.8 g/dL (30.0-36.0); Mean Corpuscular Hemoglobin 29.3 pg (28.0-34.0); Mean Corpuscular Volume 92.1 fl (81-99); Mean Platelet Volume 11.7 fL (7.4-10.4); Monocytes # 0.4 10^3/uL (0.2-0.9); Monocytes % 5.7 %; Neutrophils % 88.8 %; Nucleated Red Blood Cells % 0 %; Platelet Count 273 10^3/cmm (130-400); Red Cell Distribution Width 13.2 % (12.1-15.1); White Blood Count 7.5 10^3/uL (4.0-10.0)
[2023-05-03 05:45] LABS: Blood Urea Nitrogen 13 mg/dL (8-23); C Reactive Protein 172.3 mg/L (0.0-4.9); Calcium 8.9 mg/dL (8.5-10.5); Carbon Dioxide 16 mmol/L (22-29); Chloride 122 mmol/L (98-107); Glomerular Filtration Rate 44.9 mL/min (90-130); Glucose 123 mg/dL (65-115); Magnesium 1.7 mg/dL (1.7-2.3); Osmolality Calculated 329 mOsm/kg (285-295); Phosphorus 3.2 mg/dL (2.5-4.5); Sodium 159 mmol/L (136-145)
[2023-05-03] MEDS: sodium chloride 0.9% 1,000 ML 75 ML IV (05:51)
[2023-05-03] MEDS: pantoprazole 40 mg SDV IVP (08:37)
[2023-05-03] MEDS: acetaminophen 500 mg Tablet PO ×2 (08:38→18:05)
[2023-05-03] MEDS: dexamethasone 4 mg Tablet PO ×3 (08:38→20:57)
[2023-05-03] MEDS: levETIRAcetam 1,000 mg/10 mL UDC 500 MG PO (08:38)
[2023-05-03] MEDS: escitalopram 10 mg Tablet PO (08:38)
[2023-05-03] MEDS: ondansetron 2 mg/ML SDV 2 mL 4 MG IVP (08:46)
[2023-05-03] MEDS: dextrose 5%-sod chloride 0.45% 1,000 ML 100 ML IV ×2 (08:48→18:06)
--- NOTE | 2023-05-03 10:09 | P.PN_ITS ---
Subjective Subjective: Patient is stating that she would like to opt for hospice but would like to discuss further once the daughter is in the room Dr. Carolina to see her as well Hyponatremia worsened Dehydration No active emesis Start D5 IV fluid Vitals/I&O/Wt Last Vital Signs Temp 98.3 F 05/03/23 07:42 Pulse 108 H 05/03/23 08:19 Resp 16 05/03/23 08:19 BP 123/88 05/03/23 07:42 Pulse Ox 96 05/03/23 08:19 O2 Del Method Room Air 05/03/23 08:19 05/02/23 05/03/23 05/03/23 22:59 06:59 14:59 Intake Total 1000 / 3000 791.25 / 3791.25 263.75 / 263.75 Output Total 400 / 400 Balance 600 / 2600 791.25 / 3391.25 263.75 / 263.75 Weight last 48 hrs Weight 55.338 kg Physical Exam Narrative: Patient is dehydrated Awake and alert Able to make decision for self in my opinion GCS 15 Nonfocal neuro exam Laying supine Abdomen soft No active confusion or hallucination S1, S2 Currently on room air Data 05/03/23 04:41 05/03/23 04:41 A&P Assessment and plan (1) Protein calorie malnutrition: (2) Hypernatremia: (3) Starvation ketoacidosis: (4) Lung cancer: (5) Nausea & vomiting: (6) History of lung cancer: (7) Hepatic lesion: (8) Metabolic acidosis: (9) Metastatic cancer: Plan 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 Carolina to rule out depression or any situation if she will be deemed incapacitated, patient is leaning towards hospice care she does not want to pursue any treatment at this point however daughter wants her to continue the treatment, I did tell the family that at this point I would like to respect the wishes of the patient Hypernatremia Dehydration Change IV fluids to D5 half-normal saline Poor p.o. 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
[2023-05-03] MEDS: cyclobenzaprine 10 mg Tablet PO ×2 (13:34→20:57)
[2023-05-03] MEDS: levETIRAcetam 500 mg Tablet PO (18:07)
[2023-05-03] MEDS: pantoprazole DR 40 mg Tablet PO (18:07)
[2023-05-03] MEDS: mirtazapine 15 mg Tablet 7.5 MG PO (20:58)
[2023-05-04] VITALS: BP 110/73; PULSE 98; RESP 18; TEMP 37.1; O2SAT 98
[2023-05-04] MEDS: dextrose 5%-sod chloride 0.45% 1,000 ML 100 ML IV (04:25)
[2023-05-04 04:28] VITALS: BP 112/74; PULSE 90; RESP 18; TEMP 37; O2SAT 97
[2023-05-04 06:29] LABS: Basophils % 0.2 %; Hematocrit 30.7 % (37.0-47.0); Lymphocytes # 0.5 10^3/uL (0.8-4.8); Lymphocytes % 4.9 %; Mean Corpuscular HGB Conc 32.6 g/dL (30.0-36.0); Mean Corpuscular Hemoglobin 30.1 pg (28.0-34.0); Mean Corpuscular Volume 92.5 fl (81-99); Mean Platelet Volume 11.6 fL (7.4-10.4); Monocytes # 0.5 10^3/uL (0.2-0.9); Monocytes % 4.9 %; Neutrophils # 9.34 10^3/uL (1.8-7.7); Neutrophils % 88.7 %; Nucleated Red Blood Cells % 0 %; Platelet Count 247 10^3/cmm (130-400); Red Blood Count 3.32 10^6/uL (4.1-5.3); Red Cell Distribution Width 13.2 % (12.1-15.1); White Blood Count 10.5 10^3/uL (4.0-10.0)
[2023-05-04 06:51] LABS: Anion Gap 12.7 (5-19); Blood Urea Nitrogen 12 mg/dL (8-23); Calcium 8.1 mg/dL (8.5-10.5); Carbon Dioxide 22 mmol/L (22-29); Chloride 120 mmol/L (98-107); Glomerular Filtration Rate 44.9 mL/min (90-130); Glucose 178 mg/dL (65-115); Osmolality Calculated 316 mOsm/kg (285-295); Potassium 3.7 mmol/L (3.5-5.1); Sodium 151 mmol/L (136-145)
[2023-05-04 07:42] VITALS: BP 112/74; PULSE 103; RESP 16; TEMP 36.6; O2SAT 93
[2023-05-04 08:00] VITALS: PULSE 103; RESP 16; O2SAT 93
--- NOTE | 2023-05-04 10:24 | PM.DCS ---
Discharge Providers Date of Admission: 05/02/23 14:35 Date of Discharge: May 04, 2023 Attending Provider at Admission: Andre Martinez MD Attending Provider at Discharge: Andre Martinez MD Primary Care Provider: Christ Trent DO Diagnoses at Discharge Discharge Diagnosis (1) Protein calorie malnutrition: Status: Acute (2) Hypernatremia: Status: Acute (3) Starvation ketoacidosis: Status: Acute (4) Lung cancer: Status: Acute (5) Nausea & vomiting: Status: Acute (6) History of lung cancer: Status: Acute (7) Hepatic lesion: Status: Acute (8) Metabolic acidosis: Status: Acute (9) Metastatic cancer: Status: Acute Reason for Visit Reason for Visit: sick, unable to eat x1 week Hospital Course Hospital Course 68-year-old female with history of small cell lung cancer was following up with Dr. Reed at [facility] as of February she was told that her cancer is in remission however records revealed that she had metastatic lesion in her liver and during this visit she was diagnosed with metastatic lesion in her brain with hemorrhagic conversion, patient stated that she does not want to pursue any chemo or radiotherapy she does not want to be transferred, multiple family meetings conducted, psychiatrist was consulted to assess her decision making capacity, at this point patient seems to have capacity make decision for self, family is respecting her wishes, hospice care has been opted by the patient. Patient has lost motivation to eat, she became dehydrated which was treated with D5 sodium at the time of discharge 151, patient stated that she is getting panic attacks in the hospital and would like to go home I will discharge her on opioids Anxiolytics Physical Exam Narrative: Patient seems to be anxious Currently on room air No active seizures Abdomen soft GCS 15 nonfocal neuro exam Discharge Data Studies Completed and Pending Completed Studies During Hospitalization Category Date Time Status CT chest abdomen pelvis [CT chest abdpel w/*[id number] Cat Scan 05/02/23 11:44 Completed ] Stat CT head wo con* [id number] Stat Cat Scan 05/02/23 16:05 Completed XR chest 1V portable [id number] Stat Exams 05/02/23 11:05 Completed Radiology Impressions Chest X-Ray 05/02/23 11:05 IMPRESSION: 1. Prominent left pulmonary hilum with superior retraction of the hilum unchanged. 2. No acute cardiopulmonary process. 3. Right-sided subclavian port in satisfactory location. Chest/Abdomen/Pelvis CT 05/02/23 11:44 IMPRESSION: 1. LEFT hilar and suprahilar soft tissue thickening and stranding may all be posttreatment related changes. Recommend comparison to prior imaging studies. There are no prior recent studies available for comparison. 2. Chronic emphysema and very mild interstitial thickening in the LEFT lobe. Probably areas of pneumonitis and tree-in-bud airspace disease. 3. Recommend follow-up chest CT in 3 months. 4. Low-attenuation mass in the LEFT hepatic lobe measures 2.0 x 2.2 cm. Suspicious for metastatic lesion. 5. No ascites or adenopathy within the abdomen or pelvis. 6. Mild esophageal wall thickening and edema but no esophageal obstruction. 7. T12 30% compression fracture with retropulsion superior endplate. Head CT 05/02/23 16:05 IMPRESSION: Multiple hyperdense lesions in bilateral hemispheres with the largest measuring 2.4 x 1.8 cm in the right frontal lobe. 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 Laboratory Results WBC 10.5 10^3/uL (4.0-10.0) H 05/04/23 05:24 RBC 3.32 10^6/uL (4.1-5.3) L 05/04/23 05:24 Hgb 10.0 g/dL (11.5-15.3) L 05/04/23 05:24 Hct 30.7 % (37.0-47.0) L 05/04/23 05:24 MCV 92.5 fl (81-99) 05/04/23 05:24 MCH 30.1 pg (28.0-34.0) 05/04/23 05:24 MCHC 32.6 g/dL (30.0-36.0) 05/04/23 05:24 RDW 13.2 % (12.1-15.1) 05/04/23 05:24 Plt Count 247 10^3/cmm (130-400) 05/04/23 05:24 MPV 11.6 fL (7.4-10.4) H 05/04/23 05:24 Neut % (Auto) 88.7 % 05/04/23 05:24 Lymph % (Auto) 4.9 % 05/04/23 05:24 Elbert % (Auto) 4.9 % 05/04/23 05:24 Eos % (Auto) 0.0 % 05/04/23 05:24 Baso % (Auto) 0.2 % 05/04/23 05:24 Neut # (Auto) 9.34 10^3/uL (1.8-7.7) H 05/04/23 05:24 Lymph # (Auto) 0.5 10^3/uL (0.8-4.8) L 05/04/23 05:24 Elbert # (Auto) 0.5 10^3/uL (0.2-0.9) 05/04/23 05:24 Eos # (Auto) 0.0 10^3/uL (0.0-0.8) 05/04/23 05:24 Baso # (Auto) 0.0 10^3/uL (0.0-0.1) 05/04/23 05:24 Nucleated RBC % (auto) 0 % 05/04/23 05:24 Nucleated RBCs # 0.0 /100WBC 05/04/23 05:24 Sodium 151 mmol/L (136-145) H 05/04/23 05:24 Potassium 3.7 mmol/L (3.5-5.1) 05/04/23 05:24 Chloride 120 mmol/L (98-107) H 05/04/23 05:24 Carbon Dioxide 22 mmol/L (22-29) 05/04/23 05:24 Anion Gap 12.7 (5-19) 05/04/23 05:24 BUN 12 mg/dL (8-23) 05/04/23 05:24 Creatinine 1.2 mg/dL (0.5-0.9) H 05/04/23 05:24 GFR Calculation 44.9 mL/min (90-130) L 05/04/23 05:24 Glucose 178 mg/dL (65-115) H 05/04/23 05:24 Calculated Osmolality 316 mOsm/kg (285-295) H 05/04/23 05:24 Calcium 8.1 mg/dL (8.5-10.5) L 05/04/23 05:24 Phosphorus 3.2 mg/dL (2.5-4.5) 05/03/23 04:41 Magnesium 1.7 mg/dL (1.7-2.3) 05/03/23 04:41 Total Bilirubin 0.5 mg/dL (0.15-1.2) 05/02/23 11:10 AST 35 U/L (0-32) H 05/02/23 11:10 ALT 24 U/L (0-33) 05/02/23 11:10 Alkaline Phosphatase 79 U/L (35-105) 05/02/23 11:10 C-Reactive Protein 172.3 mg/L (0.0-4.9) H 05/03/23 04:41 Total Protein 7.9 g/dL (6.6-8.7) 05/02/23 11:10 Albumin 3.9 g/dL (3.5-5.2) 05/02/23 11:10 Globulin 4.0 g/dL (1.3-4.6) 05/02/23 11:10 Lipase 39 U/L (13-60) 05/02/23 11:10 TSH 0.65 uIU/mL (0.27-4.20) 05/02/23 11:10 Urine Color Yellow (Yellow) 05/02/23 11:10 Urine Appearance Clear (CLEAR) 05/02/23 11:10 Urine pH 5 (5-7) 05/02/23 11:10 Ur Specific [place] 1.020 (1.005-1.030) 05/02/23 11:10 Urine Protein Neg (Negative) 05/02/23 11:10 Urine Glucose (UA) Norm (Normal) 05/02/23 11:10 Urine Ketones 1+ (Negative) H 05/02/23 11:10 Urine Blood Neg (Negative) 05/02/23 11:10 Urine Nitrate Negative (Negative) 05/02/23 11:10 Urine Bilirubin Neg (Negative) 05/02/23 11:10 Urine Urobilinogen Norm mg/dL (Negative) 05/02/23 11:10 Ur Leukocyte Esterase Negative (Negative) 05/02/23 11:10 Serum Ketones Positive (Negative) H 05/02/23 11:10 Vitals Last Vital Signs Temp 97.8 F 05/04/23 07:42 Pulse 103 H 05/04/23 08:00 Resp 16 05/04/23 08:00 BP 112/74 05/04/23 07:42 Pulse Ox 93 05/04/23 08:00 O2 Del Method Room Air 05/04/23 08:00 Discharge Plan Discharge Patient Disposition: Hospice - Home Condition: Stable Prescriptions: New oxycodone-acetaminophen 5-325 mg tablet 1 tab PO Q8H PRN (Reason: pain) Qty: 20 0RF Xanax 0.5 mg tablet 0.5 mg PO BID PRN (Reason: anxiety) Qty: 20 0RF levetiracetam [Keppra] 500 mg tablet 500 mg PO BID Qty: 60 0RF Continued escitalopram oxalate 10 mg tablet 10 mg PO DAILY Breztri Aerosphere 160-9-4.8 mcg/actuation HFA aerosol inhaler 2 inh INHALATION BID trazodone 150 mg tablet 150 mg PO DAILY albuterol sulfate 90 mcg/actuation HFA aerosol inhaler 1 inh INHALATION .Q6HR PRN (Reason: Wheezing) ondansetron 4 mg tablet,disintegrating 4 mg PO Q6H PRN (Reason: nausea and vomiting) Qty: 14 0RF Discontinued Vitamin B-12 50 mcg Tablet 50 mcg PO DAILY Vitamin C 100 mg Tablet 100 mg PO DAILY cholecalciferol (vitamin D3) [Vitamin D3] 25 mcg (1,000 unit) Capsule 25 mcg PO DAILY lovastatin 40 mg tablet 40 mg PO DAILY omeprazole 20 mg capsule,delayed release(DR/EC) 20 mg PO DAILY Discharge Orders: Discharge Order (Routine); Ordered 05/04/23 Ordered By: Andre Martinez Referrals: [facility] [Outside] Christ Trent DO [Primary Care Provider] - Discharge Attestations Time Spent in Discharge Care*: greater than 30 min Quality Metrics Clinical Quality Measures [ No reported AMI, CVA or VTE this stay] Coding Level of Care Code Acute Code for Chg Fwd Diagnoses Protein calorie malnutrition E46 Hypernatremia E87.0 Starvation ketoacidosis T73.0XXA; E87.29 Lung cancer C34.90 Nausea & vomiting R11.2 History of lung cancer Z85.118 Hepatic lesion K76.9 Metabolic acidosis E87.20 Metastatic cancer C79.9
[2023-05-04 11:34] VITALS: BP 98/62; PULSE 82; RESP 16; TEMP 36.6; O2SAT 95
[2023-05-04 12:42] VITALS: BP 98/62; PULSE 82; RESP 16; TEMP 36.6; O2SAT 95
== END 2023-05-04 12:43 | disposition hospice, home (50) | DRG 640 ==
LOC: ER 12:53 → MEDSURG 14:09
PROVIDERS: Admitting Provider Internal Medicine; Emergency Provider Family Medicine; PCP Electrodiagnostic Medicine; Visit Provider Internal Medicine
DX: E86.0 Dehydration (principal); I61.9 Nontraumatic intracerebral hemorrhage, unspecified; E46 Unspecified protein-calorie malnutrition; M48.54XA Collapsed vertebra, not elsewhere classified, thoracic region, initial encounter for fracture; C78.7 Secondary malignant neoplasm of liver and intrahepatic bile duct; C79.31 Secondary malignant neoplasm of brain; I10 Essential (primary) hypertension; E87.0 Hyperosmolality and hypernatremia; Z68.20 Body mass index [BMI] 20.0-20.9, adult; Z85.118 Personal history of other malignant neoplasm of bronchus and lung; Z92.3 Personal history of irradiation; E87.29 Other acidosis; T73.0XXA Starvation, initial encounter; X58.XXXA Exposure to other specified factors, initial encounter
CPT/HCPCS: 36415; 70450; 71045; 71260; 74177; 80048; 80053; 81003; 82009; 83690; 83735; 84100; 84443; 85025; 86140; 93005; 96372; 99285; C9113; J2405; J2550; J3411; J7030; J7799; J8540; Q9967